=== PATIENT | male | born 1980 | race Caucasian/White ===

== ENCOUNTER 2024-06-07 10:51 | Day surgery (SDC) | payer BC, SELFPAY ==
[2024-06-04 12:12] VITALS: BMI 37.5
[2024-06-07 11:13] VITALS: BP 151/94; PULSE 70; RESP 20; TEMP 36.3; O2SAT 98
[2024-06-07] MEDS: LACTATED RINGERS 1000ML 1,000 ML 50 ML IV (11:24)
--- NOTE | 2024-06-07 11:27 | EXP.ANES.CKL ---
[facility] Disclaimer: The information contained in this section may have been updated after the patient was seen, as this information can be updated by other users. Medical History Diverticulitis Colovesical fistula GERD (gastroesophageal reflux disease) Obstructive sleep apnea Recurrent UTI (urinary tract infection) Hyperlipidemia Hypertension Surgical History S/p bilateral myringotomy with tube placement Family History Mother Colon cancer Social History Smoking Status: Never smoker alcohol intake: current substance use type: denies use current occupational status: employed Travel in the last 8 weeks: None caffeine: Yes Have you lived/traveled outside [place] in past 30 days?: No Contact w/someone who lives/traveled outside [place] past 30 days?: No Exposure to someone with infectious disease in past 14 days?: No Do you have a fever (greater than 100.4 F or 38 C)?: No Have you tested positive for COVID-19: No Exposed to someone with COVID-19 in past 14 days?: No Do you have a sore throat?: No Do you have a cough?: No Do you have any weakness?: No Do you have any diarrhea?: No Are you experiencing any unusual bleeding?: No Do you have any muscle aches/pain?: No Do you have any abdominal pain?: No Are you experiencing loss of taste or smell?: No [facility] Anesthesia Checklist Patient Identification Patient Identification: Arm Band Structural Data Admitted From: Home Planned Operative Procedure/s: Colonoscopy Consent for Planned Operative Procedure(s) Verified: Yes Verified Documents: Surgical Consent and History and Physical NPO Status Verified Time NPO: 00:00 Additional verifications Anesthesia Reactions: No Airway Assessment Mallampati Score:: Class III C-Spine Mobility Assessed: Yes TMJ Mobility Assessed: Yes Dentition: Good Dentition Neurological Assessment Level of Consciousness: Awake, Alert and Appropriate Anesthesia Plan Anesthesia Risk discussed: Yes Anesthesia Plan: Verified ASA Class: II Anesthesia Type: MAC
[2024-06-07 11:34] VITALS: O2SAT 100
--- NOTE | 2024-06-07 11:37 | P.PCN_ITS ---
[facility] Procedure Note Date: 06/07/24 Time: 11:59 Procedure Note:: Colonoscopy Procedure Report: Colonoscopy with cold snare polypectomy and Endo Clip placement Endoscopist: Bg Pearce II, MD Referring physician: Kobe Weinstein MD Date of Procedure: June 07, 2024 Equipment: Olympus 190 variable stiffness pediatric colonoscope Sedation: MAC sedation Indication: Mr. Rooney is a 43-year-old gentleman who is here for diagnostic colonoscopy. He has followed with me over the years for routine high risk screening colonoscopy secondary to a strong family history. His mother had metastatic colon cancer at the age of 43. He had an initial colonoscopy in July 2009 and had 2 benign hyperplastic polyps removed. His colonoscopy in 2014 was normal. His last colonoscopy with pa in March 2020 showed no polyps but left-sided diverticulosis. The patient had been on Metamucil long-term. Approximately 14 months ago, he started developing dysuria and UTIs. He has seen urologist [facility] in [place]. He had initially scheduled with Gerson Lucas MD but never saw the physician but was seen by a medical head nurse or nurse practitioner. He did have a CT scan of the abdomen and pelvis recently showing a tiny colovesical fistula. The patient did have initial appearance of a brown tiny pigmented stone that passed with his urine. However, he was never found to have kidney stones. He reports no fecalurea or pneumaturia. The patient does get pain in the mid lower abdomen and burning and discomfort with dysuria and again has been diagnosed with UTI 7 times in just over the last year. He reports no significant fever, rectal bleeding. He was having some constipation and switch from Metamucil to MiraLAX which has helped. He has only had 1 bowel of UTI since then. The patient reports no rectal bleeding or weight loss. Procedure: Prior to the procedure, a history and physical exam was performed, and patient's medications and allergies were reviewed. The risks, benefits and alternatives of the sedation and procedure were discussed with the patient. All questions were answered and informed consent was obtained. The patient was brought to the procedure room. Patient identification and proposed procedure were verified by the physician and the nurse. The patient was placed in a left lateral decubitus position and the scope was passed under direct vision. Throughout the procedure, the patient's blood pressure, pulse, and oxygen saturations were monitored continuously. The colonoscopy was accomplished without difficulty. The patient tolerated the procedure well. Findings: On digital rectal examination there was normal rectal tone. There were no external hemorrhoids. The colonoscope was introduced through the anal canal to the rectum and advanced to the cecum. The ileocecal valve and appendiceal orifice were identified. The scope was advanced a short distance into the ileum which appeared grossly normal. The scope was then withdrawn into the colon. The cecum, ascending and transverse colon and mucosa were grossly normal. There was a single 4 mm polyp in the transverse colon removed via cold snare polypectomy. There was minor heme at the polypectomy site so a single Endo Clip was placed with complete hemostasis. There were scattered extensive diverticuli throughout the descending and sigmoid colon (LEFT colon). There was some increased haustral edema and thicker haustral folds in the sigmoid colon adjacent to the diverticular disease. The rectum itself was normal. Upon retroflexion within the rectum there were grade 1-2 internal hemorrhoids. The preparation was excellent throughout with [place] Preparation Score of 9. The cecal time was 14 minutes. Impression: 1. Diminutive 4 mm transverse colon polyp 2. Left-sided diverticulosis with evidence of some chronic sigmoid diverticulitis 3. Grade 1-2 internal hemorrhoids Plan: I will follow-up the polyp histology and recommend repeat surveillance colonoscopy in 5 years based upon family history. The patient does have a colovesical fistula with recurrent UTI and dysuria. This was seen as a tiny colovesical fistula on CAT scan. Diagnostic colonoscopy negative for any associated colonic lesions. I have recommended continuation of combined MiraLAX plus Citrucel daily. I have arranged for the patient to be seen by colorectal surgery (Gennaro Lindquist MD at the [facility]). Diverticulitis is the most common cause of colovesical fistulas accounting for 40 to 90% of cases. This is more so in males and there is some feeling that the uterus protects the bladder from the inflamed sigmoid colon. Fewer than one half of patients with diverticular colovesical fistula have a history of diverticulitis. He has had some hematuria and dysuria but no pneumaturia. I would consider elective cystoscopy prior to surgery. Diverticular fistulas do not generally close spontaneously. Operative management is most appropriate. This often can be done laparoscopically in a 1 stage procedure.
[2024-06-07 12:04] VITALS: BP 126/82; PULSE 95; RESP 18; O2SAT 95
[2024-06-07 12:14] VITALS: BP 145/100; PULSE 69; RESP 18; O2SAT 97
[2024-06-07 12:24] VITALS: BP 154/96; PULSE 72; RESP 18; O2SAT 96
[2024-06-07 12:38] VITALS: BP 158/94; PULSE 74; RESP 18; O2SAT 97
== END 2024-06-07 12:38 | disposition home or self-care (01) ==
PROVIDERS: PCP Family Medicine; Visit Provider Internal Medicine Gastroenterology
PROC: 0DJD8ZZ Inspection of Lower Intestinal Tract, Via Natural or Artificial Opening Endoscopic (ICD-10-PCS; CPT 45378; principal; 2024-06-07 14:00)
DX: K63.5 Polyp of colon (principal); K57.30 Diverticulosis of large intestine without perforation or abscess without bleeding; K64.8 Other hemorrhoids; Z80.0 Family history of malignant neoplasm of digestive organs; Z86.0100 Personal history of colon polyps, unspecified
CPT/HCPCS: 45385; J2704; J7120